=== PATIENT | male | born 1985 | race Two or more races ===

== ENCOUNTER 2025-04-05 03:22 | Inpatient (IN) | payer BC, OTHER ==
[~2025-04-05] VITALS: Ht 170.2 cm; Wt 82.7 kg
[2025-04-05] MEDS: MIDAZOLAM HCL 5 MG/ML VIAL IM ONE (04:39)
[2025-04-05 04:56] LABS: PLATELET COUNT (AUTO) 283 K/uL (150-450); RED BLOOD CELL COUNT(AUTO) 4.56 MIL/uL (4.50-5.90); RED CELL DISTRIBUTION WIDTH 13.9 % (11.5-14.5); WHITE BLOOD COUNT (AUTO) 18.3 K/uL (4.5-11.0)
[2025-04-05 05:05] LABS: CALCIUM, TOTAL 9.2 mg/dL (8.8-10.5); CREATININE 1.35 mg/dL (0.60-1.30); GLOMERULAR FILTR. RATE CALC 59.0 mL/min (>60); GLUCOSE,RANDOM 191.0 mg/dL (70-110); SODIUM SERUM 140.0 mmol/L (136-145); UREA NITROGEN, BLOOD 15.0 mg/dL (7-18)
[2025-04-05 05:32] LABS: COVID AG,FIA SOURCE NASAL SWAB
[2025-04-05 05:50] LABS: SARS-COV2 (COVID) ANTIGEN,FIA Negative (Negative)
[2025-04-05] MEDS: KETAMINE HCL 50 MG/ML 10 ML VIAL IM ONE (06:04)
[2025-04-05] MEDS: LORazepam 2 MG/ML VIAL IM ONE (08:25)
[2025-04-05 08:30] VITALS: O2SAT 96
[2025-04-05] MEDS: SODIUM CHLORIDE 0.9% 1,000 ML IV ONE (08:50)
[2025-04-05] MEDS ORDERED: LORazepam 2 MG/ML VIAL IVP PRN (11:15)
[2025-04-05] MEDS ORDERED: ONDANSETRON HCL 4 MG/2 ML VIAL IVP PRN (11:15)
[2025-04-05] MEDS: SODIUM CHLORIDE 0.9% 1,000 ML IV SCH (12:28)
[2025-04-05] MEDS: PIPERACILLIN/TAZO 3.375 GM/D5W 50 ML IV ONE (12:28)
[2025-04-05 17:00] VITALS: BP 99/79; PULSE 97; RESP 19; TEMP 98.1; O2SAT 99
[2025-04-05] MEDS ORDERED: SODIUM CHLORIDE 0.9% 500 ML IV ONE (18:19)
[2025-04-05] MEDS: PIPERACILLIN/TAZO 3.375 GM/D5W 50 ML IV SCH (18:25)
[2025-04-05 20:00] VITALS: BP 112/68; PULSE 103; RESP 18; TEMP 98.1; O2SAT 99
[2025-04-05] MEDS: DOCUSATE SODIUM 100 MG CAPSULE PO SCH (20:20)
[2025-04-06] VITALS: BP 115/66; PULSE 85; RESP 18; TEMP 98.2; O2SAT 99
[2025-04-06 05:07] VITALS: BP 113/75; PULSE 86; RESP 18; TEMP 98.2; O2SAT 99
[2025-04-06 07:59] VITALS: BP 109/72; PULSE 85; RESP 17; TEMP 98; O2SAT 99
[2025-04-06] MEDS: FAMOTIDINE 20 MG TABLET PO SCH (08:21)
[2025-04-06 12:16] LABS: PLATELET COUNT (AUTO) 260 K/uL (150-450); RED BLOOD CELL COUNT(AUTO) 4.25 MIL/uL (4.50-5.90); RED CELL DISTRIBUTION WIDTH 13.8 % (11.5-14.5); WHITE BLOOD COUNT (AUTO) 9.0 K/uL (4.5-11.0)
[2025-04-06 12:18] VITALS: BP 116/69; PULSE 82; RESP 18; TEMP 98.2; O2SAT 99
[2025-04-06 12:30] LABS: CALCIUM, TOTAL 8.4 mg/dL (8.8-10.5); CREATININE 1.11 mg/dL (0.60-1.30); GLOMERULAR FILTR. RATE CALC > 60 mL/min (>60); GLUCOSE,RANDOM 100 mg/dL (70-110); SODIUM SERUM 143 mmol/L (136-145); UREA NITROGEN, BLOOD 23 mg/dL (7-18)
[2025-04-06 12:41] LABS: APPEARANCE,URINE CLEAR (CLEAR); GLUCOSE, URINE (UA) NEGATIVE (NEGATIVE); LEUKOCYTE ESTERASE ,URINE NEGATIVE (NEGATIVE); NITRATE,URINE NEGATIVE (NEGATIVE); OCCULT BLOOD,URINE NEGATIVE (NEGATIVE); PH,URINE DRUG SCREEN 6.0 (5.0-8.0); SPECIFIC GRAVITIY, URINE 1.027 (1.003-1.030)
[2025-04-06 12:45] LABS: AMPHET/METH SCREEN,URINE POSITIVE (NEGATIVE); BARBITURATE SCREEN, URINE NEGATIVE (NEGATIVE); CANNABINOID SCREEN,URINE NEGATIVE (NEGATIVE); COCAINE SCREEN,URINE NEGATIVE (NEGATIVE); METHADONE SCREEN, URINE NEGATIVE (NEGATIVE)
[2025-04-06 13:01] LABS: ALCOHOL, URINE DRUG SCREEN NEGATIVE (NEGATIVE)
[2025-04-06 16:09] VITALS: BP 117/63; PULSE 89; RESP 17; TEMP 98.8; O2SAT 98
[2025-04-06] MEDS: ACETAMINOPHEN 325 MG TABLET PO PRN (19:44)
[2025-04-06 19:57] VITALS: BP 121/68; PULSE 78; RESP 18; TEMP 98.4; O2SAT 98
[2025-04-07 00:13] VITALS: BP 116/65; PULSE 67; RESP 18; TEMP 98.1; O2SAT 100
[2025-04-07 05:43] VITALS: BP 112/69; PULSE 76; RESP 18; TEMP 98.4; O2SAT 100
[2025-04-07 08:06] VITALS: BP 120/75; PULSE 60; RESP 18; TEMP 98.2; O2SAT 100
[2025-04-07] MEDS: SODIUM CHLORIDE 0.9% 1,000 ML IV SCH (11:51)
[2025-04-07 12:08] VITALS: BP 120/88; PULSE 68; RESP 20; TEMP 98.2; O2SAT 100
[2025-04-07 16:52] VITALS: BP 120/93; PULSE 69; RESP 19; TEMP 98.1; O2SAT 100
[2025-04-07 20:08] VITALS: BP 125/71; PULSE 68; RESP 18; TEMP 98.4; O2SAT 100
[2025-04-08 00:06] VITALS: BP 131/90; PULSE 72; RESP 18; TEMP 98.1; O2SAT 100
[2025-04-08 06:09] VITALS: BP 121/91; PULSE 79; RESP 18; TEMP 98.2; O2SAT 99
[2025-04-08 07:40] VITALS: BP 119/88; PULSE 76; RESP 18; TEMP 98.9; O2SAT 99
[2025-04-08 11:38] VITALS: BP 113/70; PULSE 71; RESP 18; TEMP 97.9; O2SAT 99
== END 2025-04-08 15:30 | disposition home or self-care (01) | DRG 917 ==
LOC: EMS 04:24 → EDH 11:08 → 5S 16:52
PROVIDERS: ADMIT Internal Medicine; ATTEND Internal Medicine
DX: T43.621A Poisoning by amphetamines, accidental (unintentional), initial encounter (principal); G92.8 Other toxic encephalopathy; M62.82 Rhabdomyolysis; R65.10 Systemic inflammatory response syndrome (SIRS) of non-infectious origin without acute organ dysfunction; F15.90 Other stimulant use, unspecified, uncomplicated
CPT/HCPCS: 70450; 71045; 72125; 80048; 80307; 81003; 82550; 85025; 93005; 96360; 96372; 99291; G0480; J1200; J1630; J2060; J2250; J2543; J3490; J7030; J7040; 36415-L1; 36415-TC

== ENCOUNTER 2025-08-27 18:57 | Emergency (ER) | payer BC ==
[~2025-08-27] VITALS: Ht 170.2 cm; Wt 82.0 kg
[2025-08-27 19:17] VITALS: TEMP 99.1
[2025-08-27 20:40] VITALS: BP 156/95; PULSE 134; RESP 18; O2SAT 98
[2025-08-27 20:40] LABS: APPEARANCE,URINE CLEAR (CLEAR); GLUCOSE, URINE (UA) NEGATIVE (NEGATIVE); LEUKOCYTE ESTERASE ,URINE NEGATIVE (NEGATIVE); NITRATE,URINE NEGATIVE (NEGATIVE); OCCULT BLOOD,URINE NEGATIVE (NEGATIVE); PH,URINE DRUG SCREEN 5.5 (5.0-8.0); SPECIFIC GRAVITIY, URINE 1.003 (1.003-1.030)
[2025-08-27 20:46] LABS: ALCOHOL, URINE DRUG SCREEN POSITIVE (NEGATIVE); AMPHET/METH SCREEN,URINE POSITIVE (NEGATIVE); BARBITURATE SCREEN, URINE POSITIVE (NEGATIVE); CANNABINOID SCREEN,URINE NEGATIVE (NEGATIVE); COCAINE SCREEN,URINE NEGATIVE (NEGATIVE); METHADONE SCREEN, URINE NEGATIVE (NEGATIVE)
[2025-08-27] MEDS ORDERED: HYDR50CA7 PO (20:56)
[2025-08-27] MEDS ORDERED: BENZ-247 PO (20:56)
[2025-08-27] MEDS ORDERED: OLAN10TA74 PO (20:56)
== END 2025-08-27 20:59 | disposition home or self-care (01) ==
LOC: EMS 18:57
DX: R45.851 Suicidal ideations (principal); F43.20 Adjustment disorder, unspecified; F15.10 Other stimulant abuse, uncomplicated; F12.90 Cannabis use, unspecified, uncomplicated; F17.210 Nicotine dependence, cigarettes, uncomplicated; Z79.899 Other long term (current) drug therapy
CPT/HCPCS: 80307; 81003; 99284